=== PATIENT | male | born 1995 | race Two or more races ===

== ENCOUNTER 2018-09-24 13:01 | Emergency (ER) | payer BC ==
[~2018-09-24] VITALS: Ht 177.8 cm; Wt 74.0 kg
[2018-09-24] MEDS ORDERED: ACETAMINOPHEN 500 MG TABLET ONE ×2 (13:19→13:25)
[2018-09-24] MEDS ORDERED: BUPR150T6 PO (13:27)
[2018-09-24] MEDS ORDERED: ACETAMINOPHEN 500 MG TABLET PO ONE (13:30)
[2018-09-24] MEDS ORDERED: PLEASE ENTER ALLERGIES MC SCH (13:30)
--- NOTE | 2018-09-24 13:31 | NUR ---
pt to ed for sore throat x4 days. seen yesterday for same. prescribed magic mouthwash that isn't helping. connected to monitors. vss. awaiting edmd assessment.
--- NOTE | 2018-09-24 13:36 | NUR ---
pt to imaging.
[2018-09-24] MEDS ORDERED: DEXAMETHASONE 4 MG/ML, 1ML IV ONE (14:00)
[2018-09-24] MEDS ORDERED: KETOROLAC 30 MG/1 ML IVPush ONE (14:00)
[2018-09-24] MEDS ORDERED: SODIUM CHLORIDE 0.9% 1,000ML IVBOLUS ONE (14:00)
[2018-09-24] MEDS ORDERED: SODIUM CHLORIDE FLUSH 10ML SYR IVF ONE (14:00)
[2018-09-24] MEDS ORDERED: DEXAMETHASONE 4 MG/ML, 5ML ONE (14:09)
[2018-09-24] MEDS ORDERED: KETOROLAC 30 MG/1 ML ONE (14:09)
--- NOTE | 2018-09-24 14:22 | NUR ---
iv established. labs drawn. xr complete. pt medicated per mar. ivf infusing. pt resting in room with friend at bs. vss. no needs expressed. awaiting resutls.
[2018-09-24 14:51] LABS: MEAN CORPUSCULAR VOLUME 85.1 fL (81-97); MEAN PLATELET VOLUME 9.9 fL (7.4-10.4); PLATELET COUNT 207 x10^3/uL (130-400); RED BLOOD COUNT 5.13 x10^6/uL (4.38-5.82); RED CELL DISTRIBUTION WIDTH 14.1 % (9.4-14.8)
--- NOTE | 2018-09-24 15:03 | NUR ---
Recieved report from RENAE Rueda. All questions answered. Assuming care of pt. Lab results pending.
[2018-09-24 15:17] VITALS: BP 107/58
--- NOTE | 2018-09-24 15:19 | NUR ---
Pt states, "my throat is itchy." Pt states, "my pain is a 7.5". NADN. Pt connected to NIBP and continous pulse ox. Pt's temp at 99.3 post medication from [facility]. Call light within reach. No needs expressed at this time. Pt resting on gurney with towel covering eyes.
[2018-09-24 15:22] LABS: MD YES
[2018-09-24] MEDS ORDERED: HYDROcodone/APAP 5/325 TABLET ONE (15:26)
[2018-09-24 15:28] LABS: BAND#(MANUAL) 0.24 x10^3/uL; BANDS%(MANUAL) 2 % (0-7); LYMPH#(MANUAL) 1.18 x10^3/uL (1-3.4); LYMPHS% (MANUAL) 10 % (22-44); MONOS#(MANUAL) 1.65 x10^3/uL (0.3-2.7); MONOS% (MANUAL) 14 % (2-9); SEG#(MANUAL) 8.73 x10^3/uL (1.8-6.8); SEGS% (MANUAL) 74 % (42-75)
[2018-09-24 15:29] LABS: <PLATELET ESTIMATE> ADEQUATE; <PLT MORPHOLOGY> NORMAL PLT MORPH; <RBC MORPHOLOGY> NORMAL
[2018-09-24] MEDS ORDERED: HYDROcodone/APAP 5/325 TABLET PO ONE (15:30)
--- NOTE | 2018-09-24 15:30 | NUR ---
Provided medication per [facility]. Pt appreciative.
--- NOTE | 2018-09-24 15:48 | NUR ---
Provided pt d/c paperwork and prescription. Pt called his mother to discuss d/c information. Pt requesting "[place] and Augmentin." ED MD aware. Pt provided education of d/c plan of care. Pt stated verbal understanding. PIV removed in left forearm 20g with tip intact.
--- NOTE | 2018-09-24 15:49 | NUR ---
Patient given discharge instructions and they have confirmed that they understand the instructions. Patient ambulatory with steady gait. Pt left with d/c paperwork, prescription, and all personal belongings.
== END 2018-09-24 15:51 | disposition home or self-care (01) ==
LOC: ED 14:34
DX: J02.8 Acute pharyngitis due to other specified organisms (principal); B97.89 Other viral agents as the cause of diseases classified elsewhere
CPT/HCPCS: 36415; 71046; 85025; 86308; 96374; 96375; 99284; J1100; J1885; J7030